=== PATIENT | female | born 1945 | race Caucasian/White ===

== ENCOUNTER 2017-01-27 05:18 | Inpatient (IN) | payer OTHER ==
[2017-01-19 13:39] LABS: HEMATOCRIT 38.5 % (37.0-47.0); HEMOGLOBIN 12.8 gm/dL (12.0-15.0); MCH 30.4 pg (26.0-34.0); MCHC 33.4 g/dL (28.0-37.0); MCV 91.1 fL (80.0-100.0); RBC 4.23 mil/uL (4.20-5.00); RDW 13.7 % (10.5-14.5); WBC 6.4 thou/uL (4.0-11.0)
[2017-01-19 13:40] LABS: URINE BILIRUBIN NEGATIVE (Negative); URINE BLOOD TRACE (Negative); URINE COLOR YELLOW; URINE GLUCOSE-RANDOM* NEGATIVE (Negative); URINE KETONES NEGATIVE (Negative); URINE LEUKOCYTES-REFLEX NEGATIVE (Negative); URINE PROTEIN (DIPSTICK) NEGATIVE (Negative); URINE SPECIFIC GRAVITY <= 1.005 (1.003-1.035); URINE UROBILINOGEN 0.2 E.U./dl (0.2-1.0)
[2017-01-19 13:49] LABS: ALBUMIN 3.7 g/dL (3.4-5.0); CALCIUM 9.3 mg/dL (8.5-10.1); CREATININE 0.7 mg/dL (0.6-1.0); POTASSIUM 3.7 mmol/L (3.5-5.1)
[2017-01-19 13:53] LABS: PROTIME 10.6 Seconds (9.3-11.4)
[~2017-01-27] VITALS: Ht 170.2 cm; Wt 85.3 kg
[2017-01-27] VITALS (10 sets, daily range): BP systolic 103–129; BP diastolic 54–79
--- NOTE | ~2017-01-27 | O ---
[facility] [place] [address] OPERATIVE REPORT Name: JUSTA REAL Room #: 543-P ADM IN M.R.#: [id number] Admission: 01/27/17 Attend Phys: Art Pagan MD Discharge: Date of : 47 Report #: [id number] THIS REPORT FOR: //name// CC: NINA Pagan DATE OF SERVICE: 01/27/2017 PREOPERATIVE DIAGNOSIS: Left knee degenerative joint disease, severe. POSTOPERATIVE DIAGNOSIS: Left knee degenerative joint disease, severe. PROCEDURE: Left total knee arthroplasty. SURGEON: Art Pagan M.D. POULTRY AND FISH BUTCHER: MICHAELA Calderon ANESTHETIC: General. INDICATIONS: See [facility] H and P revisions, 01/27/2017. IMPLANTS UTILIZED: Used a DePuy PFC knee system. Used a cruciate-retaining femoral component press fit size 4 narrow, size 3 tibial tray with a 12.5 mm insert and a 41 mm oval dome patella. DESCRIPTION OF PROCEDURE: After adequate general anesthesia had been obtained, the patient's left lower extremity was prepped and draped in the usual meticulous sterile fashion. Limb was exsanguinated with gravity, tourniquet inflated to 350 torr. An anterior midline incision was made, subQ divided sharply. Hemostasis obtained with electrocautery. Medial parapatellar incision was made. Infrapatellar fat pad excised. Medial release performed. A drill was used to drill the distal femur. This hole was enlarged, irrigated, suctioned, and the intramedullary guide placed the full length of the femur. The distal femoral cutting guide was pinned to appropriate height and distal femoral cut was made. The measuring device was then used to measure the femur, measured 4 in the AP dimension, but 3 in the medial to lateral dimension. We marked the distal femur, placed the cutting guide into position and the anterior, posterior and chamfer cuts were made. Rongeur was used to remove additional osteophytes. At this time, the ACL was transected, tibia translated anteriorly and menisci were excised. The drill was used to drill central portion of the tibia. This hole was enlarged, irrigated, suctioned, and the intramedullary guide placed the full length of the tibia. Proximal tibial cutting guide was placed at [facility] [address] [place] [address] OPERATIVE REPORT Name: ADDIEJUSTA Room #: 543-P [facility] IN [facility].#: [id number] Admission: 01/27/17 Attend Phys: Art Pagan MD Discharge: Date of : 47 Report #: [id number] appropriate height. Proximal tibia cut was made, 3 tray gave us the best coverage on the tibia. We put the trial components in position and with a 12.5 spacer, she had the best flexion and extension gap, patella tracked normally. Patella was then measured, cutting guide clamped into place, patellar cut was made. A 41 template gave us the best coverage. holes were drilled, trial component put in position, it tracked normally. At this time, the knee was taken through several cycles of flexion and extension. Tibial tray rotation marked. Tibial keel cuts were made. Distal femur drilled. Trial components were then removed. We irrigated the knee with both pulse lavage and antibiotic irrigation. Bone plugs were placed in the proximal tibia and the distal femur. The cement was vacuum mixed and when it reached the appropriate consistency, the knee was thoroughly dried. The tibial tray was cemented in place. Excess cement was removed. Polyethylene was impacted in place. The femur was impacted in place and the knee was taken out to 30 degrees of flexion with uniform compression placed across components. Patellar button was then cemented into place and again excess cement was removed. At this time, irrigation was placed in the wound and allowed to rest in the wound while the cement fully cured. When it had done so, the knee was irrigated, dried thoroughly, and inspected. Drains were placed superolaterally both deep and superficial. The retinacular layer was closed with combination of interrupted glsswh-ab-akziy #1 Vicryl as well as running #1 Tevdek. SubQ closed with 2-0 Monocryl, skin closed with keli. Sterile compressive dressing applied. Tourniquet deflated. By: [id number] Art Pagan MD /nt
[~2017-01-27 05:18] MED LIST: MACROBID 100 M100 M3 PO; NORCO 5-325 TA1 EACH PO; TAMSULOSIN HCL0.4 M1 PER TUBE; ZOFRAN ODT4 MG PO
[2017-01-28] VITALS (7 sets, daily range): BP systolic 97–138; BP diastolic 47–62
[2017-01-28 05:50] LABS: HEMATOCRIT 30.6 % (37.0-47.0); HEMOGLOBIN 10.6 gm/dL (12.0-15.0); MCH 31.2 pg (26.0-34.0); MCHC 34.7 g/dL (28.0-37.0); RBC 3.41 mil/uL (4.20-5.00); RDW 13.6 % (10.5-14.5); WBC 6.8 thou/uL (4.0-11.0)
[2017-01-29 04:18] VITALS: BP 112/56
[2017-01-29 06:09] LABS: HEMATOCRIT 29.5 % (37.0-47.0); HEMOGLOBIN 10.1 gm/dL (12.0-15.0); MCH 30.6 pg (26.0-34.0); MCHC 34.1 g/dL (28.0-37.0); MCV 89.6 fL (80.0-100.0); RBC 3.3 mil/uL (4.20-5.00); RDW 13.7 % (10.5-14.5); WBC 6.8 thou/uL (4.0-11.0)
[2017-01-29] MEDS ORDERED: HYDROCODONE-APA1 TA1 PO (06:51)
[2017-01-29] MEDS ORDERED: XARELTO10 MG PO (06:51)
[2017-01-29 08:30] VITALS: BP 99/53
[2017-01-29 09:01] VITALS: BP 133/61
[2017-01-29 11:06] VITALS: BP 99/53
[2017-01-29 12:36] VITALS: BP 99/53
== END 2017-01-29 15:24 | disposition home health service (06) | DRG 470 ==
LOC: TBA 05:18 → 5S 05:18 → PRE 07:13 → 5S 09:56 → PRE 12:44 → 5S 01-29 15:24
PROVIDERS: Orthopaedic Surgery
PROC: 0SRD0J9 Replacement of Left Knee Joint with Synthetic Substitute, Cemented, Open Approach (ICD-10-PCS; principal; 2017-01-27)
PROC: 3E0T3BZ Introduction of Anesthetic Agent into Peripheral Nerves and Plexi, Percutaneous Approach (ICD-10-PCS; principal; 2017-01-27)
DX: M17.12 Unilateral primary osteoarthritis, left knee (principal); Z87.891 Personal history of nicotine dependence; Z90.49 Acquired absence of other specified parts of digestive tract; Z80.3 Family history of malignant neoplasm of breast; Z80.8 Family history of malignant neoplasm of other organs or systems; Z91.018 Allergy to other foods
CPT/HCPCS: 10785; 50010; 50101; 50415; 50954; 51130; 51225; 51320; 51412; 51771; 52001; 52282; 53000; 53078; 53364; 56525; 56527; 62110; 62900; 64039; 64042; 64043; 70005

== ENCOUNTER 2017-04-07 05:09 | Day surgery (SDC) | payer OTHER ==
[~2017-04-07] VITALS: Ht 172.7 cm; Wt 80.5 kg
--- NOTE | ~2017-04-07 | O ---
[facility] [place] [address] OPERATIVE REPORT Name: JUSTA REAL Room #: DEP [facility] M.R.#: [id number] Admission: 04/07/17 Attend Phys: Art Pagan MD Discharge: 04/07/17 Date of : 47 Report #: [id number] THIS REPORT FOR: //name// CC: Alessia Pagan DATE OF SERVICE: 04/07/2017 PREOPERATIVE DIAGNOSIS: Left knee arthrofibrosis, status post total knee arthroplasty. POSTOPERATIVE DIAGNOSIS: Left knee arthrofibrosis, status post total knee arthroplasty. PROCEDURE: Left knee manipulation under anesthesia followed by an arthroscopic extensive debridement of arthrofibrosis. SURGEON: Art Pagan MD. FOUNDER AND CHIEF EXECUTIVE OFFICER: MICHAELA Calderon. ANESTHETIC: General. INDICATIONS: See hospital H and P. DESCRIPTION OF PROCEDURE: After adequate general anesthesia had been obtained, the patient's left leg was gravity exsanguinated and tourniquet inflated to 350 torr. A gentle manipulation was performed with fairly easy lysis of adhesions and her knee was able to be flexed about 130 degrees and without a lot of force. We could also get her to full extension. Knee was then prepped and draped in the usual meticulous sterile fashion. A superomedial portal was established by first infiltrating with 0.5% Naropin, then making a stab incision with 11 blade. Inflow cannula placed. Knee was insufflated with fluid. Anterolateral and anteromedial portals medial portals were established utilizing the same technique. Complete diagnostic arthroscopy was performed. Medial compartment demonstrated no specific abnormality knee in good position. She did have a moderate amount of infrapatellar arthrofibrosis, which was debrided aggressively with the shaver and the Arthrocare wand. Lateral compartment likewise was normal. Suprapatellar and peripatellar area demonstrated mild scar formation. This was debrided extensively with the shaver and the Arthrocare wand. At this time, the knee was irrigated copiously, 0.5% Naropin was infiltrated in [address] [address] OPERATIVE REPORT Name: JUSTA REAL Room #: DEP [facility] M.R.#: [id number] Admission: 04/07/17 Attend Phys: Art Pagan MD Discharge: 04/07/17 Date of : 47 Report #: [id number] the knee. The portals were closed with 4-0 nylon. Sterile dressing was applied. Tourniquet deflated. <ELECTRONICALLY SIGNED> By: Art Pagan MD 04/14/17 [id number] Art Pagan MD /nt
[~2017-04-07 05:09] MED LIST changes: +HYDROCODONE-APA1 TA1 PO; +XARELTO10 MG PO
[2017-04-07 14:00] VITALS: BP 138/97
[2017-04-07 17:27] VITALS: BP 138/97
== END 2017-04-07 18:23 | disposition home or self-care (01) ==
LOC: TBA 05:09 → OR 05:09
DX: M24.662 Ankylosis, left knee (principal); Z87.891 Personal history of nicotine dependence; Z87.442 Personal history of urinary calculi; Z90.49 Acquired absence of other specified parts of digestive tract; Z96.652 Presence of left artificial knee joint
CPT/HCPCS: 50010; 50101; 50405; 51038; 54170; 56526; 62110; 62900; 70005